=== PATIENT | female | born 1950 | race Caucasian/White ===

== ENCOUNTER → 2023-12-08 07:46 | Outpatient (REF) | payer MEDICARE, OTHER, SELFPAY | LOC: DHCBC/DCA 07:46 | PROVIDERS: ATTENDING PHYSICIAN Internal Medicine Cardiovascular Disease; FAMILY PHYSICIAN Internal Medicine | DX: R06.02 Shortness of breath (principal); R07.89 Other chest pain; R68.89 Other general symptoms and signs; R94.39 Abnormal result of other cardiovascular function study | CPT/HCPCS: 78452; 93017; A9500 ==